=== PATIENT | female | born 1935 | race Caucasian/White ===

== ENCOUNTER 2017-07-19 16:28 | Inpatient (IN) | payer OTHER, MEDICAID ==
[~2017-07-19] VITALS: Ht 162.6 cm; Wt 81.6 kg
[2017-07-19 17:56] LABS: BASOPHILS % (AUTO) 1.4 % (0.0-2.0); EOSINOPHILS % (AUTO) 0.3 % (0.0-3.0); HEMATOCRIT 45.3 % (37.0-47.0); HEMOGLOBIN 14.1 G/DL (12.0-16.0); LYMPHOCYTES % (AUTO) 10.2 % (20.0-45.0); MEAN CORPUSCULAR VOLUME 87 FL (80-99); MONOCYTES % (AUTO) 7.5 % (1.0-10.0); NEUTROPHILS % (AUTO) 80.6 % (45.0-75.0); PLATELET COUNT 235 K/UL (150-450); RED CELL DISTRIBUTION WIDTH 11.9 % (11.6-14.8); WHITE BLOOD COUNT 13.2 K/UL (4.8-10.8)
[2017-07-19 18:09] LABS: ANION GAP 6 mmol/L (5-15); BLOOD UREA NITROGEN 15 mg/dL (7-18); CARBON DIOXIDE 28 MMOL/L (21-32); CHLORIDE 104 MMOL/L (98-107); CREATININE 1.2 MG/DL (0.55-1.30); POTASSIUM 3.6 MMOL/L (3.5-5.1); SODIUM 138 MMOL/L (136-145)
[2017-07-19 18:22] LABS: ALANINE AMINOTRANSFERASE 21 U/L (12-78); ALBUMIN 3.2 G/DL (3.4-5.0); ALBUMIN/GLOBULIN RATIO 0.9 (1.0-2.7); ALKALINE PHOSPHATASE 97 U/L (46-116); ASPARTATE AMINO TRANSFERASE 17 U/L (15-37); BILIRUBIN,TOTAL 0.7 MG/DL (0.2-1.0); CKMB 0.5 NG/ML (0.0-3.6); CREATINE KINASE 33 U/L (26-308)
[2017-07-19 18:41] VITALS: BP 83/30
[2017-07-19 19:30] VITALS: BP 137/81
[2017-07-19 19:43] LABS: APPEARANCE,URINE CLEAR; BILIRUBIN, URINE NEGATIVE (NEGATIVE); COLOR,URINE PALE YELLOW; GLUCOSE, URINE (UA) NEGATIVE (NEGATIVE); KETONES,URINE NEGATIVE (NEGATIVE); LEUKOCYTE ESTERASE ,URINE 3+ (NEGATIVE); NITRITE,URINE NEGATIVE (NEGATIVE); PH,URINE 6 (4.5-8.0); PROTEIN,URINE NEGATIVE (NEGATIVE); UROBILINOGEN,URINE NORMAL MG/DL (0.0-1.0)
[2017-07-19 21:48] VITALS: BP 128/60
--- NOTE | 2017-07-19 22:54 | Emergency Room Report ---
History of Present Illness General Chief Complaint: General Complaint Source: Patient, EMS Present Illness HPI Patient had gone to primary care physician office Patient was found to have significantly low blood pressure Friends were here with her also report patient has been weak Patient initially denied and refused any intervention however after discussion with friends she was agreeable Denies any headache Denies any chest pain or shortness of breath Denies any back or flank pain Patient does have underlying psychiatric diagnoses Allergies: Coded Allergies: SULFA (SULFONAMIDE ANTIBIOTICS) (Unverified Allergy, Unknown, 07/19/17) Patient History Past Medical History: see triage record Pertinent Family History: none Reviewed Nursing Documentation: PMH: Agreed, PSxH: Agreed Nursing Documentation-PMH Past Medical History: No History, Except For History Of Psychiatric Problem: Yes - DEMENTIA Review of Systems All Other Systems: negative except mentioned in HPI Physical Exam Vital Signs Date Time Temp Pulse Resp B/P (MAP) Pulse Ox O2 Delivery O2 Flow Rate FiO2 07/19/17 16:25 97.9 91 16 83/30 97 Room Air Sp02 EP Interpretation: reviewed, normal General Appearance: well appearing, no apparent distress Head: normocephalic, atraumatic Eyes: bilateral eye PERRL, bilateral eye EOMI ENT: hearing grossly normal, normal pharynx, TMs + canals normal, uvula midline Neck: full range of motion, supple, no meningismus, no bony tend Respiratory: lungs clear, normal breath sounds, no rhonchi, no respiratory distress, no retraction, no accessory muscle use Cardiovascular #1: normal peripheral pulses, regular rate, rhythm, no edema, no gallop, no JVD, no murmur Gastrointestinal: normal bowel sounds, non tender, soft, no mass, no organomegaly, non-distended, no guarding, no hernia, no pulsatile mass, no rebound Genitourinary: no CVA tenderness Musculoskeletal: normal inspection Neurologic: oriented x3, responsive, studio designer III-XII nml as tested, motor strength/ tone normal, sensory intact Psychiatric: anxious - Patient required repeat discussion, friends at bedside as well patient appears anxious has underlying depressive mood disorder as well Skin: normal color, no rash, warm/dry, palpation normal Lymphatic: normal inspection, no adenopathy Medical Decision Making Diagnostic Impression: Primary Impression: Near syncope Additional Impression: Hypotension ER Course Patient is a fairly complex patient with multiple differential to consideration including but not limited to cardiac cardiopulmonary and vascular emergencies Patient continues to well Discussion with family and friends reveal that they're concerned about the patient's well-being at home at this time Requesting patient be observed overnight patient has done better and will have further overnight evaluation Labs Test 07/19/17 17:30 07/19/17 19:26 White Blood Count 13.2 K/UL (4.8-10.8) Red Blood Count 5.20 M/UL (4.20-5.40) Hemoglobin 14.1 G/DL (12.0-16.0) Hematocrit 45.3 % (37.0-47.0) Mean Corpuscular Volume 87 FL (80-99) Mean Corpuscular Hemoglobin 27.1 PG (27.0-31.0) Mean Corpuscular Hemoglobin Concent 31.2 G/DL (32.0-36.0) Red Cell Distribution Width 11.9 % (11.6-14.8) Platelet Count 235 K/UL (150-450) Mean Platelet Volume 7.1 FL (6.5-10.1) Neutrophils (%) (Auto) 80.6 % (45.0-75.0) Lymphocytes (%) (Auto) 10.2 % (20.0-45.0) Monocytes (%) (Auto) 7.5 % (1.0-10.0) Eosinophils (%) (Auto) 0.3 % (0.0-3.0) Basophils (%) (Auto) 1.4 % (0.0-2.0) Prothrombin Time 10.2 SEC (9.30-11.50) Prothromb Time International Ratio 1.0 (0.9-1.1) Activated Partial Thromboplast Time 24 SEC (23-33) Sodium Level 138 MMOL/L (136-145) Potassium Level 3.6 MMOL/L (3.5-5.1) Chloride Level 104 MMOL/L (98-107) Carbon Dioxide Level 28 MMOL/L (21-32) Anion Gap 6 mmol/L (5-15) Blood Urea Nitrogen 15 mg/dL (7-18) Creatinine 1.2 MG/DL (0.55-1.30) Estimat Glomerular Filtration Rate mL/min (>60) Glucose Level 120 MG/DL (74-106) Calcium Level 9.0 MG/DL (8.5-10.1) Total Bilirubin 0.7 MG/DL (0.2-1.0) Aspartate Amino Transf (AST/SGOT) 17 U/L (15-37) Alanine Aminotransferase (ALT/SGPT) 21 U/L (12-78) Alkaline Phosphatase 97 U/L (46-116) Total Creatine Kinase 33 U/L (26-308) Creatine Kinase MB 0.5 NG/ML (0.0-3.6) Creatine Kinase MB Relative Index 1.5 Troponin I 0.017 ng/mL (0.000-0.056) Total Protein 6.7 G/DL (6.4-8.2) Albumin 3.2 G/DL (3.4-5.0) Globulin 3.5 g/dL Albumin/Globulin Ratio 0.9 (1.0-2.7) Urine Color Pale yellow Urine Appearance Clear Urine pH 6 (4.5-8.0) Urine Specific [place] 1.005 (1.005-1.035) Urine Protein Negative (NEGATIVE) Urine Glucose (UA) Negative (NEGATIVE) Urine Ketones Negative (NEGATIVE) Urine Occult Blood Negative (NEGATIVE) Urine Nitrite Negative (NEGATIVE) Urine Bilirubin Negative (NEGATIVE) Urine Urobilinogen Normal MG/DL (0.0-1.0) Urine Leukocyte Esterase 3+ (NEGATIVE) Urine RBC 0-2 /HPF (0 - 2) Urine WBC 2-4 /HPF (0 - 2) Urine Squamous Epithelial Cells Few /LPF (NONE/OCC) Urine Bacteria Few /HPF (NONE) EKG Diagnostic Results Rate: normal Rhythm: NSR ST Segments: no acute changes Rhythm Strip Diag. Results EP Interpretation: yes Rate: 78 Rhythm: NSR, no PVC's, no ectopy Chest X-Ray Diagnostic Results Chest X-Ray Diagnostic Results : Chest X-Ray Ordered: Yes # of Views/Limited/Complete: 1 View Indication: Chest Pain EP Interpretation: Yes Interpretation: no consolidation, no effusion, no pneumothorax, no acute cardiopulmonary disease Impression: No acute disease Electronically Signed by: Ese Daily DO Last Vital Signs Date Time Temp Pulse Resp B/P (MAP) Pulse Ox O2 Delivery O2 Flow Rate FiO2 07/19/17 21:48 98.0 85 20 128/60 99 Room Air Status: improved Disposition: ADMITTED INPATIENT Condition: Serious Scripts Unable to Obtain Active Prescriptions or Reported Meds Referrals: NON PHYSICIAN (PCP) ESE DAILY D.O. Jul 19, 2017 22:54
[2017-07-19] MEDS ORDERED: D5 1/2NS 1,000 ML IV SCH (23:15)
[2017-07-20 00:37] VITALS: BP 131/65
[2017-07-20 01:50] VITALS: BP 162/75
[2017-07-20 04:00] VITALS: BP 141/80
--- NOTE | 2017-07-20 07:53 | Diagnostic Imaging Report ---
Indication: Shortness of breath Technique: XRAY Chest 1v Comparison: 01/23/2012 Findings: Heart size and mediastinal contours are within normal limits and stable when compared to the prior exam. There is no definite focal consolidation, pneumothorax or pleural effusion. Unchanged mild interstitial prominence. Right humerus prosthesis again noted. Scoliosis and multilevel degenerative changes are seen in the thoracic spine No acute osseous abnormality seen. Impression: No radiographic evidence of acute cardiopulmonary disease.
[2017-07-20 08:00] VITALS: BP 146/99
[2017-07-20 12:00] VITALS: BP 143/83
--- NOTE | 2017-07-20 12:48 | History & Physical ---
History and Physical History & Physicial dict SHANAMARKUSPEPPER Jul 20, 2017 12:48
--- NOTE | 2017-07-20 16:32 | History and Physical Report ---
DATE OF ADMISSION: 07/19/2017 CHIEF COMPLAINT: Near syncope. HISTORY OF PRESENT ILLNESS: The patient reports that she was near the hospital with her friends and felt very weak and came to the emergency department. The emergency room physician reports that the patient was at her primary care physician office and had very low blood pressure. She came to the emergency department and was found have a blood pressure of 83/30. She was given fluids overnight and admission was arranged. She is feeling fine now and is walking around refusing to have her intravenous catheter reinserted after it came out. She denies any headache or visual problems, nausea, vomiting, diarrhea, chest pain, shortness of breath, cough, sputum production or ankle edema. She reports that she has been eating and drinking normally and has had no fever. I reviewed the [facility] medical record and she did not visit her primary physician yesterday. PAST MEDICAL HISTORY: Hyperlipidemia, depression, falls and has mild dementia. She has been seeing a physician at her assisted living facility. MEDICATIONS: Remeron, Zoloft, Prilosec, Crestor, Combigan for glaucoma and Zofran p.r.n. ALLERGIES: Sulfa and bimatoprost. PHYSICAL EXAMINATION: GENERAL: The patient is alert and responds appropriately. Her mood seems appropriate and her memory seems good except for some events yesterday. VITAL SIGNS: Blood pressure is 143 to 146/83 to 99 today. There is no fever. Respirations and oxygen saturation are normal. The heart rate has been normal to slightly elevated. The patient is somewhat overweight. SKIN: Warm and dry. HEENT: The head is normocephalic. Eyes show no scleral icterus. Extraocular movements are intact. CHEST: Clear. CARDIAC: Rhythm is regular. ABDOMEN: Soft and nontender. EXTREMITIES: No clubbing, cyanosis, or edema. LABORATORY AND DIAGNOSTIC DATA: Laboratory studies show negative influenza test. Blood sugar 120, chemistry otherwise normal. Albumin 3.2. Troponin normal. White count is 13,200, hemoglobin is 14 and platelets are normal. Coagulation is normal. Urinalysis shows 2 to 4 white cells. IMPRESSION: 1. Transient hypotension with dizziness, possibly due to a viral infection. 2. Depression, controlled on medication. 3. Hyperlipidemia, on medication. 4. Fall risk. 5. Mild dementia. PLAN: The patient appears to be in satisfactory condition for discharge home and follow up with her primary physician. Andrea Braswell M.D. DR: BETSY JOB#: [id number] CC:
--- NOTE | 2017-07-24 13:19 | Discharge Summary ---
Discharge Summary Hospital Course Date of Admission Jul 19, 2017 at 18:20 Date of Discharge Jul 20, 2017 at 16:00 Admitting Diagnosis syncope, hypotensive episode HPI Marjan Gold is a 82 year old female who was admitted on Jul 19, 2017 at 18 :20 for Syncope/Hypotensive Episode Hospital Course dc summary #[id number] Discharge Condition Upon Discharge: stable Discharge Disposition Patient was discharged to Home (01) Discharge Diagnoses: Discharge Instructions Discharge Instructions Special Instructions I have been assigned to complete a D/C Summary on this account. I was not involved in the patient management Valentina Christopher NP ([facility]) Jul 24, 2017 13:19
--- NOTE | 2017-07-24 19:19 | Cardiology Report ---
APPROVED REPORT EXAM: Two-dimensional and M-mode echocardiogram with Doppler and color Doppler. INDICATION Syncope M-Mode DIMENSIONS IVSd0.8 (0.7-1.1cm)Left Atrium (MM)3.8 (1.6-4.0cm) LVDd4.9 (3.5-5.6cm)Aortic Root3.0 (2.0-3.7cm) PWd0.9 (0.7-1.1cm)Aortic Cusp Exc.2.0 (1.5-2.0cm) LVDs3.3 (2.5-4.0cm) PWs1.0 cm Technically difficult study due to poor acoustical windows. Normal left ventricular chamber size, systolic function and wall motion. Left ventricular ejection fraction estimated to be 60-65%. No evidence of left ventricular hypertrophy. No evidence of pericardial or pleural effusion. All other cardiac chamber sizes are within normal limits. Focal aortic valve sclerosis with adequate cusp excursion. Thickened mitral valve leaflets with normal excursion. Mild mitral annulus and aortic root calcification. Pulmonic valve not well visualized. Normal tricuspid valve structure. IVC is normal in size and collapsible with respiration. A color flow and spectral Doppler study was performed and revealed: No aortic regurgitation. No mitral regurgitation. Mitral diastolic velocities suggest reduced left ventricular relaxation c/w diastolic dysfunction grade 1. No tricuspid regurgitation.
--- NOTE | 2017-07-24 19:33 | Cardiology Report ---
APPROVED REPORT EKG Measurement Heart [id number] Normal sinus rhythm Minimal voltage criteria for LVH, may be normal variant Possible Lateral infarct, age undetermined Inferior infarct, age undetermined Abnormal ECG
--- NOTE | 2017-07-24 21:32 | Discharge Summary ---
DATE OF ADMISSION: 07/19/2017 DATE OF DISCHARGE: 07/20/2017 REASON FOR ADMISSION: 82-year-old female presented with complaint of weakness and low blood pressure. The patient was in the primary care physician office and noted to have a significant low blood pressure along with episodes of the weakness. The patient refused any interventions, but after discussion with the friend came to emergency room for evaluation. She denied chest pain or shortness of breath. She denied back or flank pain and denied any headache. Workup in the emergency room revealed low blood pressure. Pulse oximetry was stable on room air. The patient was admitted with near syncope and hypotension. HOSPITAL STAY: The patient was admitted. The patient was started on the IV fluids. Laboratory studies showed negative influenza screen test. Chemistry was stable. Troponin negative. WBC- 13.2. Hemoglobin and hematocrit were stable. Coagulation profile within normal limits. Urinalysis showed mild pyuria, 2 to 4 WBC, but few bacteria. The patient received one liter of the fluid. Blood pressure was stable. Prior to discharge, blood pressure -143/83. The patient reported feeling better. Pulse oximetry was stable on room air. The patient was stable for discharge home and follow up with the primary medical doctor next week. Due to the rapid and unexpected improvement in the patient's condition, the patient was discharged in one day. FINAL DIAGNOSES: 1. Transient hypotension and dizziness possibly secondary to viral infection. 2. Depression, controlled. 3. Hyperlipidemia, on statin. 4. Mild dementia. 5. Fall risk. DISCHARGE MEDICATIONS: List of medication was sent with the patient. DISCHARGE INSTRUCTIONS: The patient is discharged home. FOLLOWUP: Follow up with the primary medical doctor. Andrea Braswell M.D. Valentina Christopher ([facility]) N.PSelina DR: MACIEJ JOB#: [id number] CC: REID
== END 2017-07-20 16:00 | disposition home or self-care (01) | DRG 866 ==
LOC: EDBD 16:28 → EMR 18:03 → 2E 18:20 → EDBEDREQ 23:46
DX: B34.9 Viral infection, unspecified (principal); I95.9 Hypotension, unspecified; F03.90 Unspecified dementia, unspecified severity, without behavioral disturbance, psychotic disturbance, mood disturbance, and anxiety; E78.5 Hyperlipidemia, unspecified; R42 Dizziness and giddiness; H40.9 Unspecified glaucoma; Z88.2 Allergy status to sulfonamides; Z91.81 History of falling
CPT/HCPCS: 36415; 71010; 80053; 81003; 82550; 82553; 84484; 85025; 85610; 85730; 86710; 87040; 93005; 93306; 99285